=== PATIENT | female | born 1980 | race American Indian/Alaskan Native ===

== ENCOUNTER 2018-10-10 10:39 | Emergency (ER) | payer MEDICAID ==
[2018-10-10 11:48] VITALS: BP 114/72
--- NOTE | 2018-10-10 13:07 | Emergency Department Report ---
ED Extremity Problem HPI - General Chief complaint: Extremity Injury, Upper Stated complaint: RT THUMB SLAMMED IN DOOR Time Seen by Provider: 10/10/18 12:57 Source: patient Mode of arrival: Ambulatory Limitations: No Limitations - History of Present Illness Initial comments: accidently slammed thumb in door MD Complaint: extremity pain, extremity swelling, joint paint -: Sudden, Last night (around 18:30 c/o of continued throbbing pain and some bleeding off and on. ) Location: right History of Same: No - Related Data Home Medications Medication Instructions Recorded Confirmed Last Taken Norethindrone [Isabelle] 0.35 mg PO QDAY 01/19/16 01/19/16 01/18/16 13:00 Previous Rx's Medication Instructions Recorded Last Taken Type Acetaminophen/Codeine [Tylenol #3] 1 tab PO Q6H PRN #15 tab 01/19/16 Unknown Rx valACYclovir [Valtrex] 500 mg PO BID #6 tab 01/19/16 Unknown Rx Clindamycin [Clindamycin CAP] 150 mg PO Q6HR #40 capsule 10/10/18 Unknown Rx Allergies Allergy/AdvReac Type Severity Reaction Status Date / Time aspirin Allergy Swelling Verified 01/24/16 11:02 ibuprofen [From Motrin] Allergy Swelling Verified 01/24/16 11:02 methylprednisolone Allergy Hives Verified 10/10/18 11:43 [From Depo-Medrol] penicillin Allergy Shortness Verified 01/24/16 11:02 of Breath RUBBING ALCOHOL AdvReac Rash Uncoded 01/24/16 11:02 ED Review of Systems ROS: Stated complaint: RT THUMB SLAMMED IN DOOR Other details as noted in HPI Constitutional: denies: chills, fever Eyes: denies: eye pain, eye discharge, vision change ENT: denies: ear pain, throat pain Respiratory: denies: cough, shortness of breath, wheezing Cardiovascular: denies: chest pain, palpitations Endocrine: no symptoms reported Gastrointestinal: denies: abdominal pain, nausea, diarrhea Genitourinary: denies: urgency, dysuria, discharge Musculoskeletal: arthralgia. denies: back pain, joint swelling Skin: denies: rash, lesions Neurological: denies: headache, weakness, paresthesias Psychiatric: denies: anxiety, depression Hematological/Lymphatic: denies: easy bleeding, easy bruising ED Past Medical Hx - Past Medical History Hx Arthritis: Yes (KNEES) Additional medical history: DDD. SCIATICA. "NERVE DAMAGE". HERPES - Surgical History Additional Surgical History: X 4. LEFT KNEE X 2. RIGHT KNEE - Social History Smoking Status: Current Some Day Smoker Substance Use Type: Alcohol - Medications Home Medications: Home Medications Medication Instructions Recorded Confirmed Last Taken Type Acetaminophen/Codeine [Tylenol #3] 1 tab PO Q6H PRN #15 tab 01/19/16 Unknown Rx Norethindrone [Isabelle] 0.35 mg PO QDAY 01/19/16 01/19/16 01/18/16 13:00 History valACYclovir [Valtrex] 500 mg PO BID #6 tab 01/19/16 Unknown Rx Clindamycin [Clindamycin CAP] 150 mg PO Q6HR #40 capsule 10/10/18 Unknown Rx ED Physical Exam - General Limitations: No Limitations General appearance: alert, in no apparent distress - Head Head exam: Present: atraumatic, normocephalic - Eye Eye exam: Present: normal appearance - ENT ENT exam: Present: mucous membranes moist - Neck Neck exam: Present: normal inspection - Respiratory Respiratory exam: Present: normal lung sounds bilaterally. Absent: respiratory distress, wheezes, rales, rhonchi, chest wall tenderness, decreased breath sounds - Cardiovascular Cardiovascular Exam: Present: regular rate, normal rhythm. Absent: systolic murmur, diastolic murmur, rubs, gallop - GI/Abdominal GI/Abdominal exam: Present: soft, normal bowel sounds - Extremities Exam Extremities exam: Present: normal inspection, tenderness, normal capillary refill, other (swollen left thumb with less than 1 cm tear laceration to latgeral aspect. full rom. no limitation. cap refill brisk. ) - Back Exam Back exam: Present: normal inspection. Absent: CVA tenderness (R), CVA tenderness (L) - Neurological Exam Neurological exam: Present: alert, oriented X3, CN II-XII intact - Psychiatric Psychiatric exam: Present: normal affect, normal mood - Skin Skin exam: Present: warm, dry, intact, normal color. Absent: rash ED Course Vital Signs 10/10/18 11:44 Temperature 98.4 F Pulse Rate 72 Respiratory 18 Rate Blood Pressure 114/72 O2 Sat by Pulse 100 Oximetry - Reevaluation(s) Reevaluation #1: 10/10/18 13:10 thmb splinted and dressed wtih antimicrobal dressing. Critical care attestation.: If time is entered above; I have spent that time in minutes in the direct care of this critically ill patient, excluding procedure time. ED Disposition Clinical Impression: Crush injury, Laceration Disposition: DC-01 TO HOME OR SELFCARE Is pt being admited?: No Does the pt Need Aspirin: No Condition: Stable Instructions: Laceration (ED), Finger Laceration (ED), Splint Care (ED) Referrals: ALEXUS GUZMAN MD [Primary Care Provider] - 3-5 Days
--- NOTE | 2018-10-10 13:49 | XRay Report ---
FINAL REPORT EXAM: XR FINGER(S) 2+V RT HISTORY: PAIN IN RT THUMB/TRAUMA TECHNIQUE: Frontal radiograph of the right hand including oblique and lateral radiographs of the rig ht thumb. PRIORS: None. FINDINGS: There is slight deformity of the tuft of the right thumb. No dislocation. Normal mineralization. Ther e is soft tissue swelling of the right thumb. Overlying bandage material is present. No degenerative change. IMPRESSION: Possible nondisplaced right thumb tuft fracture.
== END 2018-10-10 15:00 | disposition home or self-care (01) ==
LOC: ED 10:39
DX: S61.011A Laceration without foreign body of right thumb without damage to nail, initial encounter (principal); S67.01XA Crushing injury of right thumb, initial encounter; M17.0 Bilateral primary osteoarthritis of knee; F17.200 Nicotine dependence, unspecified, uncomplicated; Z88.6 Allergy status to analgesic agent; Z88.0 Allergy status to penicillin; Z88.2 Allergy status to sulfonamides; Z91.048 Other nonmedicinal substance allergy status; W23.1XXA Caught, crushed, jammed, or pinched between stationary objects, initial encounter; Y93.89 Activity, other specified; Y92.89 Other specified places as the place of occurrence of the external cause; Y99.8 Other external cause status

== ENCOUNTER 2021-11-17 07:49 | Emergency (ER) | payer MEDICAID ==
[2021-11-17] MEDS ORDERED: FAMOTIDINE 20 MG/2 ML INJ IV ONE (08:16)
[2021-11-17] MEDS ORDERED: ONDANSETRON 4 MG/2 ML INJ IV ONE (08:16)
[2021-11-17 08:52] LABS: Basophils % (Auto) 0.7 % (0.0-1.8); Hematocrit 35.5 % (30.3-42.9); Hemoglobin 11.2 gm/dl (10.1-14.3); Lymphocytes # (Auto) 1.4 K/mm3 (1.2-5.4); Lymphocytes % (Auto) 34.9 % (13.4-35.0); Mean Corpuscular HGB Conc 32 % (30-34); Mean Corpuscular Volume 75 fl (79-97); Monocytes # (Auto) 0.3 K/mm3 (0.0-0.8); Monocytes % (Auto) 7.9 % (0.0-7.3); Platelet Count 238 K/mm3 (140-440); Red Blood Count 4.75 M/mm3 (3.65-5.03); Red Cell Distribution Width 15.9 % (13.2-15.2)
--- NOTE | 2021-11-17 09:05 | Emergency Department Report ---
ED General Adult HPI - General Chief complaint: Abdominal Pain Stated complaint: AB PAIN/NAUSEA/FATIGUE Time Seen by Provider: 11/17/21 08:15 Source: patient Mode of arrival: Ambulatory Limitations: No Limitations - History of Present Illness Initial comments: 41-year-old -[place] female patient with history of bipolar disorder presents with complaints of abdominal pain, bloating, and nausea x2 days. She also reports that she took several tests that came back inconclusive. She denies any vaginal bleeding, dyspareunia, vaginal discharge, hematuria/urinary frequency, vomiting, melena, hematochezia, or diarrhea. No chest pain or cough/shortness of breath per patient. She has not tried any OTC medications for symptoms. Patient also denies any fever/chills/sweats Severity scale (0 -10): 7 - Related Data Home Medications Medication Instructions Recorded Confirmed Last Taken Norethindrone [Isabelle] 0.35 mg PO QDAY 01/19/16 01/19/16 01/18/16 13:00 Previous Rx's Medication Instructions Recorded Last Taken Type Acetaminophen/Codeine [Tylenol #3] 1 tab PO Q6H PRN #15 tab 01/19/16 Unknown Rx valACYclovir [Valtrex] 500 mg PO BID #6 tab 01/19/16 Unknown Rx Clindamycin [Clindamycin CAP] 150 mg PO Q6HR #40 capsule 10/10/18 Unknown Rx Famotidine [Pepcid] 20 mg PO BID PRN #20 tablet 11/17/21 Unknown Rx Metoclopramide [Reglan] 10 mg PO TID PRN #30 tab 11/17/21 Unknown Rx diphenhydrAMINE [Benadryl CAP] 25 mg PO TID PRN #30 capsule 11/17/21 Unknown Rx Allergies Allergy/AdvReac Type Severity Reaction Status Date / Time aspirin Allergy Swelling Verified 01/24/16 11:02 ibuprofen [From Motrin] Allergy Swelling Verified 01/24/16 11:02 methylprednisolone Allergy Hives Verified 10/10/18 11:43 [From Depo-Medrol] penicillin Allergy Shortness Verified 01/24/16 11:02 of Breath RUBBING ALCOHOL AdvReac Rash Uncoded 01/24/16 11:02 ED Review of Systems ROS: Stated complaint: AB PAIN/NAUSEA/FATIGUE Other details as noted in HPI Constitutional: denies: chills, fever, malaise Respiratory: denies: cough, shortness of breath Cardiovascular: denies: chest pain Gastrointestinal: abdominal pain, nausea. denies: vomiting, diarrhea, constipation, hematemesis, melena, hematochezia Genitourinary: frequency. denies: urgency, dysuria, hematuria, discharge, abnormal menses Skin: denies: rash, lesions, change in color Neurological: denies: headache Hematological/Lymphatic: denies: easy bleeding, swollen glands ED Past Medical Hx - Past Medical History Previous Medical History?: Yes Hx Arthritis: Yes (KNEES) Hx Psychiatric Treatment: Yes (Bi-Polar 2) Additional medical history: DDD. SCIATICA. "NERVE DAMAGE". HERPES. herniated discs - Surgical History Past Surgical History?: Yes Additional Surgical History: X 4. LEFT KNEE X 2. RIGHT KNEE - Social History Smoking Status: Current Some Day Smoker Substance Use Type: Alcohol - Medications Home Medications: Home Medications Medication Instructions Recorded Confirmed Last Taken Type Acetaminophen/Codeine [Tylenol #3] 1 tab PO Q6H PRN #15 tab 01/19/16 Unknown Rx Norethindrone [Isabelle] 0.35 mg PO QDAY 01/19/16 01/19/16 01/18/16 13:00 History valACYclovir [Valtrex] 500 mg PO BID #6 tab 01/19/16 Unknown Rx Clindamycin [Clindamycin CAP] 150 mg PO Q6HR #40 capsule 10/10/18 Unknown Rx Famotidine [Pepcid] 20 mg PO BID PRN #20 tablet 11/17/21 Unknown Rx Metoclopramide [Reglan] 10 mg PO TID PRN #30 tab 11/17/21 Unknown Rx diphenhydrAMINE [Benadryl CAP] 25 mg PO TID PRN #30 capsule 11/17/21 Unknown Rx ED Physical Exam - General Limitations: No Limitations General appearance: alert, in no apparent distress, obese - Head Head exam: Present: atraumatic, normocephalic - Eye Eye exam: Present: normal appearance - Neck Neck exam: Present: normal inspection - Respiratory Respiratory exam: Present: normal lung sounds bilaterally. Absent: respiratory distress - Cardiovascular Cardiovascular Exam: Present: regular rate, normal rhythm - GI/Abdominal GI/Abdominal exam: Present: soft, tenderness (Epigastric and periumbilical), normal bowel sounds. Absent: distended, guarding, rebound, rigid, other (Negative Damian sign; no McBurney point tenderness) - Back Exam Back exam: Present: full ROM. Absent: CVA tenderness (R), CVA tenderness (L) - Neurological Exam Neurological exam: Present: alert, oriented X3, normal gait - Psychiatric Psychiatric exam: Present: normal affect, normal mood - Skin Skin exam: Present: warm, dry, intact, normal color. Absent: rash ED Course Vital Signs 11/17/21 08:07 Temperature 98.5 F Pulse Rate 74 Respiratory 16 Rate Blood Pressure 124/77 [Right] O2 Sat by Pulse 100 Oximetry ED Medical Decision Making - Lab Data Result diagrams: 11/17/21 08:34 11/17/21 08:34 Lab Results 11/17/21 11/17/21 11/17/21 Range/Units 08:34 08:34 08:34 WBC 4.0 L (4.5-11.0) K/mm3 RBC 4.75 (3.65-5.03) M/mm3 Hgb 11.2 (10.1-14.3) gm/dl Hct 35.5 (30.3-42.9) % MCV 75 L (79-97) fl MCH 24 L (28-32) pg MCHC 32 (30-34) % RDW 15.9 H (13.2-15.2) % Plt Count 238 (140-440) K/mm3 Lymph % (Auto) 34.9 (13.4-35.0) % [place] % (Auto) 7.9 H (0.0-7.3) % Eos % (Auto) 1.0 (0.0-4.3) % Baso % (Auto) 0.7 (0.0-1.8) % Lymph # (Auto) 1.4 (1.2-5.4) K/mm3 [place] # (Auto) 0.3 (0.0-0.8) K/mm3 Eos # (Auto) 0.0 (0.0-0.4) K/mm3 Baso # (Auto) 0.0 (0.0-0.1) K/mm3 Seg Neutrophils % 55.5 (40.0-70.0) % Seg Neutrophils # 2.2 (1.8-7.7) K/mm3 Sodium 134 L (137-145) mmol/L Potassium 4.4 (3.6-5.0) mmol/L Chloride 103.9 (98-107) mmol/L Carbon Dioxide 20 L (22-30) mmol/L Anion Gap 15 mmol/L BUN 12 (7-17) mg/dL Creatinine 0.8 (0.6-1.2) mg/dL Estimated GFR > 60 ml/min BUN/Creatinine Ratio 15 % Glucose 90 (65-100) mg/dL Calcium 9.2 (8.4-10.2) mg/dL Total Bilirubin 0.20 (0.1-1.2) mg/dL AST 18 (5-40) units/L ALT 17 (7-56) units/L Alkaline Phosphatase 44 (35-129) units/L Total Protein 6.9 (6.3-8.2) g/dL Albumin 4.0 (3.9-5) g/dL Albumin/Globulin Ratio 1.4 % Lipase 39 (13-60) units/L HCG, Qual Positive (Negative) HCG, Quant (0-4) mIU/mL Urine Color (Yellow) Urine Turbidity (Clear) Urine pH (5.0-7.0) Ur Specific [place] (1.003-1.030) Urine Protein (Negative) mg/dL Urine Glucose (UA) (Negative) mg/dL Urine Ketones (Negative) mg/dL Urine Blood (Negative) Urine Nitrite (Negative) Urine Bilirubin (Negative) Urine Urobilinogen (<2.0) mg/dL Ur Leukocyte Esterase (Negative) Urine WBC (Auto) (0.0-6.0) /HPF Urine RBC (Auto) (0.0-6.0) /HPF U Epithel Cells (Auto) (0-13.0) /HPF Urine Mucus /HPF 11/17/21 11/17/21 Range/Units 08:34 Unknown WBC (4.5-11.0) K/mm3 RBC (3.65-5.03) M/mm3 Hgb (10.1-14.3) gm/dl Hct (30.3-42.9) % MCV (79-97) fl MCH (28-32) pg MCHC (30-34) % RDW (13.2-15.2) % Plt Count (140-440) K/mm3 Lymph % (Auto) (13.4-35.0) % [place] % (Auto) (0.0-7.3) % Eos % (Auto) (0.0-4.3) % Baso % (Auto) (0.0-1.8) % Lymph # (Auto) (1.2-5.4) K/mm3 [place] # (Auto) (0.0-0.8) K/mm3 Eos # (Auto) (0.0-0.4) K/mm3 Baso # (Auto) (0.0-0.1) K/mm3 Seg Neutrophils % (40.0-70.0) % Seg Neutrophils # (1.8-7.7) K/mm3 Sodium (137-145) mmol/L Potassium (3.6-5.0) mmol/L Chloride (98-107) mmol/L Carbon Dioxide (22-30) mmol/L Anion Gap mmol/L BUN (7-17) mg/dL Creatinine (0.6-1.2) mg/dL Estimated GFR ml/min BUN/Creatinine Ratio % Glucose (65-100) mg/dL Calcium (8.4-10.2) mg/dL Total Bilirubin (0.1-1.2) mg/dL AST (5-40) units/L ALT (7-56) units/L Alkaline Phosphatase (35-129) units/L Total Protein (6.3-8.2) g/dL Albumin (3.9-5) g/dL Albumin/Globulin Ratio % Lipase (13-60) units/L HCG, Qual (Negative) HCG, Quant 91118 H (0-4) mIU/mL Urine Color Yellow (Yellow) Urine Turbidity Clear (Clear) Urine pH 5.0 (5.0-7.0) Ur Specific [place] 1.029 (1.003-1.030) Urine Protein <15 mg/dl (Negative) mg/dL Urine Glucose (UA) Neg (Negative) mg/dL Urine Ketones Tr (Negative) mg/dL Urine Blood Neg (Negative) Urine Nitrite Neg (Negative) Urine Bilirubin Neg (Negative) Urine Urobilinogen < 2.0 (<2.0) mg/dL Ur Leukocyte Esterase Neg (Negative) Urine WBC (Auto) 2.0 (0.0-6.0) /HPF Urine RBC (Auto) < 1.0 (0.0-6.0) /HPF U Epithel Cells (Auto) 4.0 (0-13.0) /HPF Urine Mucus 3+ /HPF - Radiology Data Radiology results: report reviewed ULTRASOUND OBSTETRIC INDICATION / CLINICAL INFORMATION: pain in . Pelvic pain/cramping. - Clinical Gestational Age (GA) in weeks, days: 6, 5 TECHNIQUE: Transabdominal. COMPARISON: None available. FINDINGS: GESTATIONAL SAC: Well-defined oval shape and intrauterine in location. YOLK SAC: No significant abnormality. EMBRYO/FETUS: No significant abnormality. - [place]-Rump Length = 0.7 cm = 6, 4 weeks, days - Heart Rate, beats per minute (if present) = 139 ADNEXA: No significant abnormality. FREE FLUID: None. ADDITIONAL FINDINGS: None. IMPRESSION: 1. Single, living intrauterine with estimated sonographic age of 6, 4 weeks, days. No acute sonographic abnormality. - Medical Decision Making 41-year-old -[place] female patient with history of bipolar disorder presents with complaints of abdominal pain, bloating, and nausea x2 days. She also reports that she took several tests that came back inconclusive. She denies any vaginal bleeding, dyspareunia, vaginal discharge, hematuria/urinary frequency, vomiting, melena, hematochezia, or diarrhea. No chest pain or cough/shortness of breath per patient. She has not tried any OTC medications for symptoms. Patient also denies any fever/chills/sweats Positive test. Ultrasound shows 6-week 4-day IUP. Mildly decreased sodium on CMP without other acute abnormalities. Patient declines fluids and meds. Vitals are within normal limits and patient is well-appearing. She is stable for discharge home. Reglan Benadryl given for home for nausea. Patient given referrals for [facility] and informed to follow-up within 1 to 2 weeks. Strict return precautions were discussed in detail with patient who verbalizes understanding Critical care attestation.: If time is entered above; I have spent that time in minutes in the direct care of this critically ill patient, excluding procedure time. ED Disposition Clinical Impression: Epigastric abdominal pain during in first trimester Disposition: HOME / SELF CARE / HOMELESS Is pt being admited?: No Condition: Stable Instructions: Abdominal Pain (ED), Abdominal Pain During , Activity Restriction During Prescriptions: diphenhydrAMINE [Benadryl CAP] 25 mg PO TID PRN #30 capsule PRN Reason: Nausea Famotidine [Pepcid] 20 mg PO BID PRN #20 tablet PRN Reason: Heartburn Metoclopramide [Reglan] 10 mg PO TID PRN #30 tab PRN Reason: Nausea Referrals: PRIMARY CARE, [Primary Care Provider] - 3-5 Days [facility] [Provider Group] - 3-5 Days [facility] [Provider Group] - 3-5 Days [facility] [Provider Group] - 3-5 Days Forms: Work/School Release Form(ED)
[2021-11-17 09:15] LABS: Alanine Aminotransferase 17 units/L (7-56); BUN/Creatinine Ratio 15; Blood Urea Nitrogen 12 mg/dL (7-17); Calcium 9.2 mg/dL (8.4-10.2); Hemolysis Index 2
[2021-11-17 11:11] LABS: Bilirubin,Urine NEG (Negative); Blood,Urine NEG (Negative); Color,Urine Yellow (Yellow); Mucus,Urine 3+ /HPF; Protein,Urine <15 mg/dL mg/dL (Negative); RBC,Urine < 1.0 /HPF (0.0-6.0); Urobilinogen,Urine < 2.0 mg/dL (<2.0)
--- NOTE | 2021-11-17 12:47 | Ultrasound Report ---
ULTRASOUND OBSTETRIC INDICATION / CLINICAL INFORMATION: pain in . Pelvic pain/cramping. - Clinical Gestational Age (GA) in weeks, days: 6, 5 TECHNIQUE: Transabdominal. COMPARISON: None available. FINDINGS: GESTATIONAL SAC: Well-defined oval shape and intrauterine in location. YOLK SAC: No significant abnormality. EMBRYO/FETUS: No significant abnormality. - [place]-Rump Length = 0.7 cm = 6, 4 weeks, days - Heart Rate, beats per minute (if present) = 139 ADNEXA: No significant abnormality. FREE FLUID: None. ADDITIONAL FINDINGS: None. IMPRESSION: 1. Single, living intrauterine with estimated sonographic age of 6, 4 weeks, days. No acut e sonographic abnormality. Signer Name: Keyona Peralta MD Signed: 11/17/2021 12:43 PM Workstation Name: [id number]
[2021-11-17 13:05] VITALS: BP 109/62
== END 2021-11-17 13:05 | disposition home or self-care (01) ==
LOC: ED 07:49
DX: O26.891 Other specified pregnancy related conditions, first trimester (principal); R10.13 Epigastric pain; Z3A.01 Less than 8 weeks gestation of pregnancy; F17.200 Nicotine dependence, unspecified, uncomplicated; Z88.6 Allergy status to analgesic agent; Z88.0 Allergy status to penicillin
CPT/HCPCS: 36415; 76801; 80053; 81001; 83690; 84702; 84703; 85025; 99284; J2405; J3490

== ENCOUNTER 2022-06-24 22:35 | Emergency (ER) | payer MEDICAID ==
[2022-06-25] MEDS ORDERED: ACETAMINOPHEN W/CODEINE 300-30 MG TAB PO ONE (04:53)
--- NOTE | 2022-06-25 04:58 | Emergency Department Report ---
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 Patient denies new fall injury or trauma. The pain is described at 4/10 exacerbated by prolonged standing bending and twisting. Patient states previously treated with steroids and Tylenol 3 for same. Requesting referral to orthopedics as last Is no longer taking her insurance plan. Has other complaint. Patient arrived to ED via POV. Patient is ambulatory with minimal gait disturbance at this time. There are no abrasions abrasions lacerations or bleeding. There is no numbness tingling or paralysis. - Related Data Home Medications Medication Instructions Recorded Confirmed Last Taken Norethindrone [Isabelle] 0.35 mg PO QDAY 01/19/16 01/19/16 01/18/16 13:00 Previous Rx's Medication Instructions Recorded Last Taken Type Acetaminophen/Codeine [Tylenol #3] 1 tab PO Q6H PRN #15 tab 01/19/16 Unknown Rx valACYclovir [Valtrex] 500 mg PO BID #6 tab 01/19/16 Unknown Rx Clindamycin [Clindamycin CAP] 150 mg PO Q6HR #40 capsule 10/10/18 Unknown Rx Famotidine [Pepcid] 20 mg PO BID PRN #20 tablet 11/17/21 Unknown Rx Metoclopramide [Reglan] 10 mg PO TID PRN #30 tab 11/17/21 Unknown Rx diphenhydrAMINE [Benadryl CAP] 25 mg PO TID PRN #30 capsule 11/17/21 Unknown Rx Acetaminophen/Codeine [Tylenol 1 tab PO Q6H PRN 4 Days #12 tab 06/25/22 Unknown Rx /Codeine # 3 tab] Menthol/Camphor [[place] 1 applicatio TP QID PRN #1 tube 06/25/22 Unknown Rx Ointment] Allergies Allergy/AdvReac Type Severity Reaction Status Date / Time aspirin Allergy Swelling Verified 01/24/16 11:02 ibuprofen [From Motrin] Allergy Swelling Verified 01/24/16 11:02 methylprednisolone Allergy Hives Verified 10/10/18 11:43 [From Depo-Medrol] penicillin Allergy Shortness Verified 01/24/16 11:02 of Breath RUBBING ALCOHOL AdvReac Rash Uncoded 01/24/16 11:02 ED Review of Systems ROS: Stated complaint: right leg pain Other details as noted in HPI Constitutional: denies: chills, fever Eyes: denies: eye pain, eye discharge, vision change ENT: denies: ear pain, throat pain Respiratory: denies: cough, shortness of breath, wheezing Cardiovascular: denies: chest pain, palpitations Endocrine: no symptoms reported Gastrointestinal: denies: abdominal pain, nausea, diarrhea Genitourinary: denies: urgency, dysuria, discharge Musculoskeletal: arthralgia (Right knee pain). denies: joint swelling Skin: denies: rash, lesions Neurological: denies: headache, weakness, paresthesias Psychiatric: denies: anxiety, depression Hematological/Lymphatic: denies: easy bleeding, easy bruising ED Past Medical Hx - Past Medical History Hx Arthritis: Yes (KNEES) Hx Psychiatric Treatment: Yes (Bi-Polar 2) Additional medical history: DDD. SCIATICA. "NERVE DAMAGE". HERPES. herniated discs - Surgical History Additional Surgical History: X 4. LEFT KNEE X 2. RIGHT KNEE - Social History Smoking Status: Current Some Day Smoker Substance Use Type: Alcohol - Medications Home Medications: Home Medications Medication Instructions Recorded Confirmed Last Taken Type Acetaminophen/Codeine [Tylenol #3] 1 tab PO Q6H PRN #15 tab 01/19/16 Unknown Rx Norethindrone [Isabelle] 0.35 mg PO QDAY 01/19/16 01/19/16 01/18/16 13:00 History valACYclovir [Valtrex] 500 mg PO BID #6 tab 01/19/16 Unknown Rx Clindamycin [Clindamycin CAP] 150 mg PO Q6HR #40 capsule 10/10/18 Unknown Rx Famotidine [Pepcid] 20 mg PO BID PRN #20 tablet 11/17/21 Unknown Rx Metoclopramide [Reglan] 10 mg PO TID PRN #30 tab 11/17/21 Unknown Rx diphenhydrAMINE [Benadryl CAP] 25 mg PO TID PRN #30 capsule 11/17/21 Unknown Rx Acetaminophen/Codeine [Tylenol 1 tab PO Q6H PRN 4 Days #12 tab 06/25/22 Unknown Rx /Codeine # 3 tab] Menthol/Camphor [[place] 1 applicatio TP QID PRN #1 tube 06/25/22 Unknown Rx Ointment] ED Physical Exam - General Limitations: No Limitations General appearance: alert, in no apparent distress - Head Head exam: Present: atraumatic, normocephalic - Eye Eye exam: Present: normal appearance, EOMI Pupils: Present: normal accommodation - ENT ENT exam: Present: mucous membranes moist - Neck Neck exam: Present: normal inspection, full ROM. Absent: tenderness, lymphadenopathy - Respiratory Respiratory exam: Present: normal lung sounds bilaterally. Absent: respiratory distress, wheezes - Cardiovascular Cardiovascular Exam: Present: regular rate, normal rhythm, normal heart sounds. Absent: systolic murmur, diastolic murmur, rubs, gallop - GI/Abdominal GI/Abdominal exam: Present: soft, normal bowel sounds. Absent: distended, tenderness - Rectal Rectal exam: Present: deferred - Extremities Exam Extremities exam: Present: normal inspection, full ROM, normal capillary refill - Expanded Lower Extremity Exam Right Knee exam: Present: full ROM, tenderness (Anterior knee pain with deep palpation there is no anterior drawer no clicking popping Mild pain with limitation.), pain w/ pronation/supination, full knee extension. Absent: swelling, abrasion, laceration, ecchymosis, deformity, crepidus, dislocation, erythema, effusion, posterior draw sign Lower Leg exam: Present: full ROM. Absent: tenderness, swelling Neuro vascular tendon exam: Present: no vascular compromise. Absent: pulse deficit, motor deficit, sensory deficit, tendon deficit Gait: Positive: observed and normal - Back Exam Back exam: Present: normal inspection, full ROM. Absent: CVA tenderness (R), CVA tenderness (L) - Neurological Exam Neurological exam: Present: alert, oriented X3, CN II-XII intact, reflexes normal. Absent: motor sensory deficit - Expanded Neurological Exam Expanded Patient oriented to: Present: person, place, time Speech: Present: fluid speech Motor strength exam: RUE: 5, LUE: 5, RLE: 5, LLE: 5 DTR: knee (R): 1+, knee (L): 1+ Best Eye Response (Shelly): (4) open spontaneously Best Motor Response (Shelly): (6) obeys commands Best Verbal Response (Shelly): (5) oriented Shelly Total: 15 - Psychiatric Psychiatric exam: Present: normal affect, normal mood - Skin Skin exam: Present: warm, dry, intact, normal color. Absent: rash ED Course Vital Signs 06/24/22 22:39 Temperature 98.8 F Pulse Rate 80 Respiratory 16 Rate Blood Pressure 130/90 [Right] O2 Sat by Pulse 100 Oximetry ED Medical Decision Making - Medical Decision Making This is acute on chronic knee pain, patient remains ambulatory. There is no NaSal swelling ecchymosis crepitus or deformity. Patient maintains full knee extension. Ambulation is steady. There is no catch pop anterior drawer or instability noted on exam. Plan Tylenol as needed for pain as needed, follow-up with orthopedics as scheduled. Return to emergency department should symptoms worsen. Critical care attestation.: If time is entered above; I have spent that time in minutes in the direct care of this critically ill patient, excluding procedure time. ED Disposition Clinical Impression: Arthralgia of knee, right Disposition: HOME / SELF CARE / HOMELESS Is pt being admited?: No Does the pt Need Aspirin: No Condition: Stable Instructions: Joint Pain, [id number] Additional Instructions: Take medication as prescribed, rice therapy as directed. Follow-up with orthopedics in 2 to 3 days. Return to emergency department should symptoms worsen. Prescriptions: Menthol/Camphor [[place] Ointment] 1 applicatio TP QID PRN #1 tube PRN Reason: pain Acetaminophen/Codeine [Tylenol /Codeine # 3 tab] 1 tab PO Q6H PRN 4 Days #12 tab PRN Reason: Pain Forms: Work/School Release Form(ED) Time of Disposition: 05:20
[2022-06-25 05:36] VITALS: BP 132/91
== END 2022-06-25 06:07 | disposition home or self-care (01) ==
LOC: ED 22:35
DX: M25.561 Pain in right knee (principal); F17.200 Nicotine dependence, unspecified, uncomplicated; F10.20 Alcohol dependence, uncomplicated; Z88.0 Allergy status to penicillin; Z88.6 Allergy status to analgesic agent; Z88.8 Allergy status to other drugs, medicaments and biological substances
CPT/HCPCS: 99283